=== PATIENT | male | born 1975 | race Caucasian/White ===

== ENCOUNTER → 2021-06-23 10:29 | Outpatient (BNVA) | payer OTHER, SELFPAY | PROVIDERS: Visit Provider Nurse Practitioner Family | DX: Z13.6 Encounter for screening for cardiovascular disorders (principal); Z98.890 Other specified postprocedural states; Z86.010 Personal history of colon polyps; Z87.19 Personal history of other diseases of the digestive system; R10.9 Unspecified abdominal pain; R53.83 Other fatigue; Z79.899 Other long term (current) drug therapy; E55.9 Vitamin D deficiency, unspecified; K43.9 Ventral hernia without obstruction or gangrene | CPT/HCPCS: 80053; 80061; 81000; 82150; 82306; 83036; 83690; 84443; 85025 ==

== ENCOUNTER → 2021-09-03 08:12 | Outpatient (BNVA) | payer OTHER, SELFPAY | PROVIDERS: PCP Nurse Practitioner Family; Visit Provider Surgery | DX: Z20.822 Contact with and (suspected) exposure to COVID-19 (principal) | CPT/HCPCS: 87635 ==

== ENCOUNTER 2021-09-10 08:37 | Day surgery (SDC) | payer OTHER, SELFPAY ==
[2021-09-08 13:36] VITALS: BMI 34.0
[2021-09-10 09:00] VITALS: BP 126/68; PULSE 53; RESP 18; TEMP 36.2; O2SAT 98
[2021-09-10] MEDS: sodium chloride 0.9% 1,000 ML 30 ML IV (09:18)
--- NOTE | 2021-09-10 09:22 | P.ANESASSM_ITS ---
Pre-Anesthetic Assessment Pre-Anesthetic Assessment: Height/Weight: Height 1.88 m Weight 120.202 kg Temp Pulse Resp BP Pulse Ox 97.1 F L 18 L 52 H 126/68 98 09/10/21 09:00 09/10/21 09:00 09/10/21 09:00 09/10/21 09:00 09/10/21 09:00 Preop Diagnosis: diagnostic Proposed Procedure: Operation Date: 09/10/21 10:00 Proposed Procedures p Colonoscopy 16484 K63.5(Not Applicable) - Gilberto Posada MD Was Beta Maikel taken within 24 hours: N/A Was Clonidine taken within 24 hours: N/A Last intake: Intake Last Liquid Date 09/09/21 Last Liquid Time 21:00 Last Solid Date 09/08/21 Last Solid Time 19:00 Social: Social History: Tobacco and No alcohol Exam: Pre-Anes Outpt Exam: alert, oriented x 3, clear to auscultation bilaterally and regular rate & rhythm Airway: Submandibular: WNL Cervical ROM: WNL MP: 2 Dentition: Full Pulmonary: Pulmonary: COPD CV/HEM: CV/HEM: HTN Metabolic: Metabolic: Morbid obesity Anesthetic Plan: ASA status: 2 Anesthesia: MAC Risk of > 500 ml blood loss (7ml/kg in children): No Meds/Allergies Current Medications: Current Medications Generic Name Dose Route Start Last Admin Trade Name Freq PRN Reason Stop Dose Admin Sodium Chloride 1,000 mls @ 30 ml s/hr 09/10/21 09:00 09/10/21 09:18 Sodium Chloride 0.9% IV 09/11/21 08:59 30 mls/hr .Q24H MASON Administration PFSH Anesthesia PFSH: Medical History (Updated 08/03/21 @ 10:59 by NILTON Parkinson) Acute bacterial sinusitis Amnesia Colon polyps H/O hiatal hernia Lower respiratory infection Shortness of breath Vitamin D deficiency Surgical History (Updated 07/07/21 @ 11:54 by Gilberto Posada MD) H/O colonoscopy with polypectomy H/O esophagogastroduodenoscopy S/P cholecystectomy [place] S/P lumbar discectomy 07/04/2000 [place] Social History Smoking and tobacco status: current every day smoker Quit status (tobacco): considering quitting Second hand smoke exposure: No Smoking risk assessment/counseling performed?: No Alcohol intake: never Desire information about alcohol rehabilitation?: No Counseling given: No Desire information about substance/drug rehabilitation?: No Counseling given: No Data Anesthesia Cardiac Studies: No Data to Display
--- NOTE | 2021-09-10 09:39 | W.PM.OPSFHP ---
Same Day Surgery H&P Indication for Procedure/HPI DATE OF PROCEDURE: September 10, 2021 CHIEF COMPLAINT/INDICATIONFOR SURGICAL PROCEDURE: colonoscopy PREOP DIAGNOSIS: diagnostic PLANNED PROCEDRUE: Operation Date: 09/10/21 10:00 Proposed Procedures p Colonoscopy 42533 K63.5(Not Applicable) - Gilberto Posada MD Medications/Allergies* Allergies/Adverse Reactions Allergy/AdvReac Type Severity Reaction Status Date / Time Penicillins Allergy Intermediate unknown Verified 08/03/21 10:33 celecoxib [From Celebrex] Allergy Ulcers Verified 08/03/21 10:33 Current Medications: Generic Name Dose Route Start Last Admin Trade Name Freq PRN Reason Stop Dose Admin Sodium Chloride 1,000 mls @ 30 mls/hr 09/10/21 09:00 09/10/21 09:18 Sodium Chloride 0.9% IV 09/11/21 08:59 30 mls/hr .Q24H MASON Administration Pertinent History/Comorbid Conditions* Medical History (Updated 08/03/21 @ 10:59 by NILTON Parkinson) Acute bacterial sinusitis Amnesia Colon polyps H/O hiatal hernia Lower respiratory infection Shortness of breath Vitamin D deficiency Surgical History (Updated 07/07/21 @ 11:54 by Gilberto Posada MD) H/O colonoscopy with polypectomy H/O esophagogastroduodenoscopy S/P cholecystectomy [place] S/P lumbar discectomy 07/04/2000 [place] Social History Smoking and tobacco status: current every day smoker Quit status (tobacco): considering quitting Second hand smoke exposure: No Smoking risk assessment/counseling performed?: No Alcohol intake: never Desire information about alcohol rehabilitation?: No Counseling given: No Desire information about substance/drug rehabilitation?: No Counseling given: No Pertinent Exam Findings alert, oriented x 3 and regular rate & rhythm Recommendations Surgery/Procedure today Coding Level of Care Code Acute [employer] for Median Grubbs
[2021-09-10 10:33] VITALS: BP 101/72; PULSE 53; RESP 16; TEMP 36.1; O2SAT 97
[2021-09-10 10:45] VITALS: BP 100/59; PULSE 60; RESP 18; O2SAT 99
--- NOTE | 2021-09-10 13:37 | ANE.PACU2 ---
Inpatient post-anesthesia follow up: Airway intact: Yes Vital signs: Temperature 97.0 F Pulse Rate 60 Respiratory Rate 18 Blood Pressure 100/59 Pulse Oximetry 99 Oxygen Delivery Me thod Room Air Oxygen Flow Rate Fraction of Inspir ed Oxygen Hydration adequate: Yes Nausea and vomiting: No Mental status: Baseline
== END 2021-09-10 11:09 | disposition home or self-care (01) ==
PROVIDERS: PCP Nurse Practitioner Family; Visit Provider Surgery
PROC: 0DJD8ZZ Inspection of Lower Intestinal Tract, Via Natural or Artificial Opening Endoscopic (ICD-10-PCS; CPT 45378; principal; 2021-09-10 10:00)
DX: R19.4 Change in bowel habit (principal); Z86.010 Personal history of colon polyps; K64.8 Other hemorrhoids; F17.200 Nicotine dependence, unspecified, uncomplicated; J44.9 Chronic obstructive pulmonary disease, unspecified; E66.01 Morbid (severe) obesity due to excess calories; Z68.34 Body mass index [BMI] 34.0-34.9, adult; I10 Essential (primary) hypertension
CPT/HCPCS: 45380; 82274; 83630; 87493; 87506; 88305; 96360; 96361; J2704; J3490; J7030

== ENCOUNTER → 2022-09-22 08:50 | Outpatient (BNVA) | payer OTHER, SELFPAY | PROVIDERS: PCP Nurse Practitioner; Visit Provider Nurse Practitioner | DX: Z13.6 Encounter for screening for cardiovascular disorders (principal); R53.83 Other fatigue; R11.0 Nausea; Z79.899 Other long term (current) drug therapy; Z12.5 Encounter for screening for malignant neoplasm of prostate; R19.7 Diarrhea, unspecified; Z00.00 Encounter for general adult medical examination without abnormal findings; K91.5 Postcholecystectomy syndrome | CPT/HCPCS: 80053; 80061; 84443; 85025; G0103 ==

== ENCOUNTER → 2022-09-23 10:48 | Outpatient (BNVA) | payer OTHER, SELFPAY | PROVIDERS: PCP Nurse Practitioner; Visit Provider Nurse Practitioner | DX: R19.7 Diarrhea, unspecified (principal) | CPT/HCPCS: 87177; 87209; 87506 ==

== ENCOUNTER → 2024-03-13 11:27 | Outpatient (BNVA) | payer OTHER, SELFPAY | PROVIDERS: PCP Nurse Practitioner Family; Visit Provider Nurse Practitioner Family | DX: Z13.6 Encounter for screening for cardiovascular disorders (principal); Z79.899 Other long term (current) drug therapy; M79.2 Neuralgia and neuritis, unspecified; R51.9 Headache, unspecified; S09.90XA Unspecified injury of head, initial encounter; M54.12 Radiculopathy, cervical region; B02.9 Zoster without complications; Z98.890 Other specified postprocedural states; Z86.010 Personal history of colon polyps | CPT/HCPCS: 80053; 80061; 81003; 82607; 83036; 84443; 85025 ==